=== PATIENT | female | born 1990 | race American Indian/Alaskan Native ===

== ENCOUNTER 2017-01-10 13:57 | Inpatient (IN) | payer MEDICAID ==
[2017-01-10 14:09] VITALS: BMI 40.7
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
[2017-01-10 15:33] LABS: ALB/GLOB RATIO 1.2 (1.1-1.8); ALKALINE PHOSPHATASE 73 U/L (38-133); ALT/SGPT 18 U/L (7-56); AST/SGOT 29 U/L (15-39); BILIRUBIN,TOTAL 1.3 mg/dL (0.2-1.3); BLOOD UREA NITROGEN 9 mg/dL (7-21); CARBON DIOXIDE 24 mmol/L (21-33); CHLORIDE 98 mmol/L (98-107); GFR AFRICAN-AMERICAN > 60; GLUCOSE,RANDOM 112 mg/dL (70-110); LIPASE 17 U/L (23-300); SODIUM 135 mmol/L (132-148)
[2017-01-10 15:46] LABS: HEMATOCRIT 35.1 % (36.0-48.0); MEAN CELL VOLUME 81.4 fL (80.0-105.0); MEAN CORPUSCULAR HEMOGLOBIN 26.9 pg (25.0-35.0); MEAN PLATELET VOLUME 10.3 fl (7.0-11.0); PLATELET COUNT 358 10^3/uL (120.0-450.0); RED CELL DISTRIBUTION WIDTH 15.5 % (11.5-14.5)
[2017-01-10 15:58] LABS: ADD MANUAL DIFF? YES; WHITE BLOOD COUNT 29.6 10^3/ul (4.5-11.0)
[2017-01-10 16:13] LABS: PH,URINE 6.5 (4.7-8.0); URINE BILIRUBIN SMALL (NEGATIVE); URINE BLOOD NEGATIVE (NEGATIVE); URINE GLUCOSE (UA) NEGATIVE (NEGATIVE); URINE KETONE NEGATIVE (NEGATIVE); URINE LEUKOCYTE ESTERASE MODERATE Leu/uL (NEGATIVE); URINE PROTEIN 30 mg/dL (<30 mg/dL); URINE UROBILINOGEN >=8.0 E.U./dL (<1 E.U./dL)
[2017-01-10 16:15] LABS: URINE APPEARANCE SLIGHT-CLOUDY (CLEAR); URINE COLOR AMBER (YELLOW)
[2017-01-10] MEDS ORDERED: Morphine 4 mg/ml ISec IVP STA ×2 (16:16→20:02)
[2017-01-10 16:17] LABS: URINE AMORPHOUS SEDIMENT MODERATE; URINE EPITHELIAL CELLS MANY /hpf (0-5)
[2017-01-10 16:27] LABS: BAND 3 % (0-2); EOSINOPHIL 1 % (0.0-3.0); NEUTROPHIL 86 % (50.0-70.0)
[2017-01-10 16:28] LABS: HYPOCHROMIA 1+; PLATELET ESTIMATE NORMAL (NORMAL); TOXIC GRANULATION 2+
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
[2017-01-10 17:38] LABS: ADD MANUAL DIFF? NO
[2017-01-10 17:40] LABS: BASO # 0.02 K/mm3 (0.0-2.0); BASO % 0.1 % (0.0-3.0); EOS # 0.1 (0.0-0.7); EOS % 0.2 % (1.5-5.0); GRAN # 23.55 (1.4-6.5); GRAN % 86.4 % (50.0-68.0); LYMPH # 2.6 (1.2-3.4); LYMPH % 9.4 % (22.0-35.0); MEAN CELL VOLUME 81.6 fL (80.0-105.0); MEAN CORPUSCULAR HEMOGLOBIN 26.6 pg (25.0-35.0); MEAN CORPUSCULAR HGB CONC 32.6 g/dl (31.0-37.0); MEAN PLATELET VOLUME 9.6 fl (7.0-11.0); MONO # 1.1 (0.1-0.6); MONO % 3.9 % (1.0-6.0); PLATELET COUNT 287 10^3/uL (120.0-450.0); RED CELL DISTRIBUTION WIDTH 15.5 % (11.5-14.5)
[2017-01-10 17:42] LABS: WHITE BLOOD COUNT 27.2 10^3/ul (4.5-11.0)
[2017-01-10] MEDS ORDERED: Piperacill/Tazo 4.5gm in NS 100 ML IVPB STA (17:47)
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
[2017-01-10] MEDS ORDERED: Ampicillin/Sulbactam 3 GM in Sodium Chloride 0.9% 100 ML IVPB STA (18:09)
[2017-01-10 18:34] LABS: VENOUS BLOOD PH 7.38 (7.32-7.43)
[2017-01-10] MEDS ORDERED: Sodium Chloride 0.9% 1,000 ML IV STA (18:41)
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
--- NOTE | 2017-01-10 22:38 | US ---
EXAM: US Pelvis Complete, Transabdominal. US Pelvis, Transvaginal. CLINICAL HISTORY: 26 years old, female; Pain; Abdominal pain; Lower abdomen; Additional info: Pid R/O ovarian abscess TECHNIQUE: Real-time transabdominal and transvaginal pelvic ultrasound (complete) with image documentation. Transvaginal imaging was used for better evaluation of the endometrium and adnexa. EXAM DATE/TIME: 01/10/2017 6:20 PM COMPARISON: Recent pelvic CT of 01/10/2017 FINDINGS: Uterus: Measures 12.4 x 6.4 x 6.6 cm. A solid, oval shaped mass measuring 2.5 x 2.2 x 2.5 cm is seen arising from the uterus anteriorly on the left, most compatible with a fibroid. This is most likely subserosal in location. It is exophytic. Endometrial stripe does not appear abnormally thickened, measuring 1.4 cm. Cervix appears closed. Right ovary: Within normal limits in appearance. Measures 3.1 x 1.9 x 2.3 cm. Flow seen in the right ovary on color and Doppler imaging. Left ovary: Within normal limits in appearance. Measures 3.3 x 2.8 x 2.6 cm. Flow seen in the left ovary on color and Doppler imaging. Cul-de-sac: No free fluid. IMPRESSION: No evidence of ovarian torsion, tubo-ovarian abscess, or other significant acute abnormality. 2.5 cm uterine fibroid. See above for remaining findings.
[2017-01-10] MEDS: Oxycodone/Acetaminophen 5/325 mg Tab PO PRN (23:50)
[2017-01-10] MEDS: Sodium Chloride 0.9% 1,000 ML IV SCH (23:51)
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
[2017-01-11] MEDS: cefOXitin 2 GM in Sodium Chloride 0.9% 100 ML IV SCH ×4 (00:18→19:13)
[2017-01-11] MEDS ORDERED: HYDROmorphone 1 mg/ml ISec IVP STA (02:20)
[2017-01-11] MEDS: Oxycodone/Acetaminophen 5/325 mg Tab PO PRN ×3 (05:41→19:18)
[2017-01-11 07:38] LABS: HEMATOCRIT 31.8 % (36.0-48.0); MEAN CELL VOLUME 82.6 fL (80.0-105.0); MEAN CORPUSCULAR HEMOGLOBIN 26.2 pg (25.0-35.0); MEAN CORPUSCULAR HGB CONC 31.8 g/dl (31.0-37.0); MEAN PLATELET VOLUME 9.4 fl (7.0-11.0); PLATELET COUNT 296 10^3/uL (120.0-450.0); RED CELL DISTRIBUTION WIDTH 15.6 % (11.5-14.5); WHITE BLOOD COUNT 21.7 10^3/ul (4.5-11.0)
[2017-01-11 07:42] LABS: ADD MANUAL DIFF? YES
[2017-01-11 07:57] LABS: ALB/GLOB RATIO 1.1 (1.1-1.8); ALKALINE PHOSPHATASE 78 U/L (38-133); ALT/SGPT 16 U/L (7-56); AST/SGOT 24 U/L (15-39); BILIRUBIN,TOTAL 0.7 mg/dL (0.2-1.3); BLOOD UREA NITROGEN 8 mg/dL (7-21); CALCIUM 8.2 mg/dL (8.4-10.5); CARBON DIOXIDE 24 mmol/L (21-33); CHLORIDE 100 mmol/L (95-110); GFR AFRICAN-AMERICAN > 60; GLUCOSE,RANDOM 118 mg/dL (70-110); POTASSIUM 3.7 mmol/L (3.6-5.0); SODIUM 132 mmol/L (132-148); TOTAL PROTEIN 7.1 g/dL (5.8-8.3)
[2017-01-11 08:51] LABS: NEUTROPHIL 80 % (50.0-70.0)
[2017-01-11 08:52] LABS: ANISOCYTOSIS 1+; ATYPICAL LYMPHOCYTE 1 % (0.0-0.0); HYPOCHROMIA 1+; MICROCYTOSIS 1+; PLATELET ESTIMATE NORMAL (NORMAL)
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
[2017-01-11 09:28] LABS: IRON 10 ug/dL (45-180)
--- NOTE | 2017-01-11 11:31 | CP.PCM.PN ---
Subjective - Date & Time of Evaluation Date of Evaluation: 01/11/17 Time of Evaluation: 07:40 Objective - Vital Signs/Intake and Output Vital Signs (last 24 hours): Temp Pulse Resp BP Pulse Ox 100 F H 109 H 18 142/82 97 01/11/17 09:21 01/11/17 07:30 01/11/17 07:30 01/11/17 07:30 01/11/17 07:30 Intake and Output: 01/11/17 01/11/17 06:59 18:59 Intake Total 1680 Balance 1680 - Medications Medications: Current Medications Acetaminophen (Tylenol 325mg Tab) 650 mg PO Q4H PRN PRN Reason: Fever >100.5 F Last Admin: 01/11/17 09:21 Dose: 650 mg Doxycycline Hyclate (Doryx) 100 mg PO Q12 [facility] PRN Reason: Protocol Last Admin: 01/11/17 09:21 Dose: 100 mg Cefoxitin Sodium 2 gm/ Sodium (Chloride) 100 mls @ 100 mls/hr IV Q6H [facility] PRN Reason: Protocol Last Admin: 01/11/17 05:40 Dose: 100 mls/hr Sodium Chloride (Sodium Chloride 0.9%) 1,000 mls @ 150 mls/hr IV .Q6H40M [facility] Last Admin: 01/10/17 23:51 Dose: 150 mls/hr Ondansetron HCl (Zofran Inj) 4 mg IVP Q4H PRN PRN Reason: Nausea/Vomiting Oxycodone/Acetaminophen (Percocet 5/325 Mg Tab) 1 tab PO Q6H PRN PRN Reason: Pain, moderate (4-7) Stop: 01/13/17 23:39 Last Admin: 01/11/17 05:41 Dose: 1 tab - Labs Labs: 01/11/17 07:15 01/11/17 07:15
[2017-01-11 12:58] LABS: FOLATE 9.4 ng/mL
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
[2017-01-11 23:57] LABS: URINE BILIRUBIN NEGATIVE (NEGATIVE); URINE BLOOD LARGE (NEGATIVE); URINE GLUCOSE (UA) NEGATIVE (NEGATIVE); URINE KETONE NEGATIVE (NEGATIVE); URINE LEUKOCYTE ESTERASE TRACE Leu/uL (NEGATIVE); URINE PROTEIN 30 mg/dL (<30 mg/dL)
[2017-01-12] MEDS: cefOXitin 2 GM in Sodium Chloride 0.9% 100 ML IV SCH ×5 (00:02→23:12)
[2017-01-12 00:16] LABS: URINE APPEARANCE SL CLOUDY (CLEAR); URINE COLOR YELLOW (YELLOW)
[2017-01-12 00:21] LABS: URINE BACTERIA FEW (NEG)
[2017-01-12] MEDS: Oxycodone/Acetaminophen 5/325 mg Tab PO PRN ×3 (01:04→21:54)
[2017-01-12 06:57] LABS: HEMOGLOBIN 10.2 g/dL (11.7-15.5); RDW 16.7 % (11.0-15.0)
[2017-01-12 07:44] LABS: ADD MANUAL DIFF? NO
[2017-01-12 07:48] LABS: BASO # 0.01 K/mm3 (0.0-2.0); BASO % 0.1 % (0.0-3.0); EOS # 0.3 (0.0-0.7); EOS % 2.5 % (1.5-5.0); GRAN # 11.45 (1.4-6.5); GRAN % 82.9 % (50.0-68.0); HEMATOCRIT 32.5 % (36.0-48.0); LYMPH # 1.5 (1.2-3.4); LYMPH % 11.2 % (22.0-35.0); MEAN CELL VOLUME 82.3 fL (80.0-105.0); MEAN CORPUSCULAR HEMOGLOBIN 26.1 pg (25.0-35.0); MEAN CORPUSCULAR HGB CONC 31.7 g/dl (31.0-37.0); MEAN PLATELET VOLUME 9.5 fl (7.0-11.0); MONO # 0.5 (0.1-0.6); MONO % 3.3 % (1.0-6.0); PLATELET COUNT 299 10^3/uL (120.0-450.0); RED CELL DISTRIBUTION WIDTH 15.3 % (11.5-14.5); WHITE BLOOD COUNT 13.8 10^3/ul (4.5-11.0)
[2017-01-12 08:03] LABS: BLOOD UREA NITROGEN 8 mg/dL (7-21); CALCIUM 8.2 mg/dL (8.4-10.5); CARBON DIOXIDE 21 mmol/L (21-33); CHLORIDE 106 mmol/L (95-110); GFR AFRICAN-AMERICAN > 60; GLUCOSE,RANDOM 117 mg/dL (70-110); POTASSIUM 3.9 mmol/L (3.6-5.0); SODIUM 136 mmol/L (132-148)
[2017-01-12 09:16] VITALS: RESP 20
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
[2017-01-12] MEDS: Sodium Chloride 0.9% 1,000 ML IV SCH ×3 (14:00→22:25)
--- NOTE | 2017-01-12 16:01 | CP.PCM.PN ---
<Raquel Villeda - Last Filed: 01/12/17 22:00> Subjective - Date & Time of Evaluation Date of Evaluation: 01/12/17 Time of Evaluation: 09:10 - Subjective Subjective: Patient was seen and examined at bedside. Overnight patient complained of generalized itchiness, one dose of Benadryl was given. At the time of exam, patient still complains of bilateral lower abdominal pain. Denies headache, weakness, fever, chills, shortness of breath, chest pain, abdominal pain, nausea , vomiting, vaginal discharge or urinary symptoms. Objective - Vital Signs/Intake and Output Vital Signs (last 24 hours): Temp Pulse Resp BP Pulse Ox 99.9 F H 117 H 20 135/71 100 01/12/17 07:30 01/12/17 07:30 01/12/17 07:30 01/12/17 07:30 01/12/17 07:30 Intake and Output: 01/12/17 01/12/17 06:59 18:59 Intake Total 4680 Balance 4680 - Medications Medications: Current Medications Acetaminophen (Tylenol 325mg Tab) 650 mg PO Q4H PRN PRN Reason: Fever >100.5 F Last Admin: 01/11/17 09:21 Dose: 650 mg Doxycycline Hyclate (Doryx) 100 mg PO Q12 [facility] PRN Reason: Protocol Last Admin: 01/12/17 09:07 Dose: 100 mg Cefoxitin Sodium 2 gm/ Sodium (Chloride) 100 mls @ 100 mls/hr IV Q6H [facility] PRN Reason: Protocol Last Admin: 01/12/17 11:50 Dose: 100 mls/hr Sodium Chloride (Sodium Chloride 0.9%) 1,000 mls @ 150 mls/hr IV .Q6H40M [facility] Last Admin: 01/10/17 23:51 Dose: 150 mls/hr Ibuprofen (Motrin Tab) 400 mg PO Q6H PRN PRN Reason: Fever >100.4 F Last Admin: 01/12/17 04:51 Dose: 400 mg Nicotine (Nicoderm Cq) 1 patch TD DAILY [facility] Last Admin: 01/12/17 09:10 Dose: 1 patch Ondansetron HCl (Zofran Inj) 4 mg IVP Q4H PRN PRN Reason: Nausea/Vomiting Oxycodone/Acetaminophen (Percocet 5/325 Mg Tab) 1 tab PO Q6H PRN PRN Reason: Pain, moderate (4-7) Stop: 01/13/17 23:39 Last Admin: 01/12/17 09:07 Dose: 1 tab - Labs Labs: 01/12/17 06:45 01/12/17 06:45 - Constitutional Appears: Non-toxic, No Acute Distress - Head Exam Head Exam: ATRAUMATIC, NORMOCEPHALIC - Eye Exam Eye Exam: Normal appearance, PERRL - ENT Exam ENT Exam: Mucous Membranes Moist - Neck Exam Neck Exam: Normal Inspection - Respiratory Exam Respiratory Exam: Clear to Ausculation Bilateral, NORMAL BREATHING PATTERN. absent: Wheezes, Respiratory Distress - Cardiovascular Exam Cardiovascular Exam: RRR, +S1, +S2 - GI/Abdominal Exam GI & Abdominal Exam: Soft, Normal Bowel Sounds. absent: Tenderness Additional comments: No ecchymosis or obvious trauma appreciated - Extremities Exam Extremities Exam: Normal Inspection. absent: Joint Swelling, Pedal Edema - Back Exam Back Exam: NORMAL INSPECTION - Neurological Exam Neurological Exam: Alert, Awake, Oriented x3 - Psychiatric Exam Psychiatric exam: Normal Affect, Normal Mood - Skin Skin Exam: Dry, Intact, Warm Assessment and Plan - Assessment and Plan (Free Text) Assessment: 26 year old female with no significant past medical history was admitted for abdominal pain and pelvic inflammatory disease Abdominal pain Admitted to regular floor Etiology is likely pelvic inflammatory disease due to unknown and now disseminated infection and/or secondary to trauma Full pelvic examination in the ER revealed cervical motion tenderness C. trachomatis RNA negative N. gonorrhoeae RNA positive Urine and blood cultures no growth after 48 hours UA reviewed Lipase negative CT abd 01/10 showed mild dilatation of fluid-filled bowel loops and mild mucosal enhancement and mild prominence of the mesenteric lymph nodes Transvaginal US 01/10 showed a 2.5cm uterine fibroid but no tubo-ovarian abscess or ovarian torsion Rib X rays 01/10 showed no rib fractures Continue doxycycline and cefoxitin Continue IVF NS @ 150ml/hr Continue percocet 5/325 PRN pain Vitals q4h [employer] and gen surg consulted No intervention indicated Continue current abx, continue with doxycycline/flagyl BID as outpatient Follow up HIV, Hep B, RPR Anemia Iron studies: iron 10, TIBC 328, %sat 3, Ferritin 81.4 Normal B12, folate Hgb electrophoresis pending No active bleeding Hemodynamically stable Prophylactic measures AE hose for DVT ppx Continue tylenol PRN fever Continue zofran PRN nausea Activity as tolerated <Duy Contreras - Last Filed: 01/13/17 06:52> Objective - Vital Signs/Intake and Output Vital Signs (last 24 hours): Temp Pulse Resp BP Pulse Ox 98.6 F 100 H 20 146/78 96 01/13/17 05:58 01/13/17 05:58 01/13/17 05:58 01/13/17 05:58 01/13/17 05:58 Intake and Output: 01/12/17 01/13/17 18:59 06:59 Intake Total 2420 Balance 2420 - Medications Medications: Current Medications Acetaminophen (Tylenol 325mg Tab) 650 mg PO Q4H PRN PRN Reason: Fever >100.5 F Last Admin: 01/13/17 03:34 Dose: 650 mg Diphenhydramine HCl (Benadryl) 25 mg PO HS PRN PRN Reason: Insomnia Last Admin: 01/12/17 23:33 Dose: 25 mg Doxycycline Hyclate (Doryx) 100 mg PO Q12 [facility] PRN Reason: Protocol Last Admin: 01/12/17 21:53 Dose: 100 mg Cefoxitin Sodium 2 gm/ Sodium (Chloride) 100 mls @ 100 mls/hr IV Q6H [facility] PRN Reason: Protocol Last Admin: 01/13/17 05:04 Dose: 100 mls/hr Sodium Chloride (Sodium Chloride 0.9%) 1,000 mls @ 150 mls/hr IV .Q6H40M [facility] Last Admin: 01/13/17 02:00 Dose: 150 mls/hr Ibuprofen (Motrin Tab) 400 mg PO Q6H PRN PRN Reason: Fever >100.4 F Last Admin: 01/12/17 04:51 Dose: 400 mg Nicotine (Nicoderm Cq) 1 patch TD DAILY [facility] Last Admin: 01/12/17 09:10 Dose: 1 patch Ondansetron HCl (Zofran Inj) 4 mg IVP Q4H PRN PRN Reason: Nausea/Vomiting Oxycodone/Acetaminophen (Percocet 5/325 Mg Tab) 1 tab PO Q6H PRN PRN Reason: Pain, moderate (4-7) Stop: 01/13/17 23:39 Last Admin: 01/12/17 21:54 Dose: 1 tab - Labs Labs: 01/12/17 06:45 01/12/17 06:45 Attending/Attestation - Attestation I have personally seen and examined this patient.: Yes I have fully participated in the care of the patient.: Yes I have reviewed all pertinent clinical information, including history, physical exam and plan: Yes Notes (Text): 01/12/17 26 year old female with no significant past medical history who presented with lower abdominal pain, found to have PID. C. trachomatis RNA was negative and N. gonorrhoeae RNA was positive. [employer] evaluation was appreciated. Continue with iv antibiotics. She was febrile yesterday but no fever reported today. Will follow up on cultures. Leukocytosis is improving. She has mild anemia with fibroids as well. 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 Duy Contreras MD Hospitalist.
[2017-01-13] MEDS: Sodium Chloride 0.9% 1,000 ML IV SCH ×3 (02:00→09:55)
[2017-01-13] MEDS: cefOXitin 2 GM in Sodium Chloride 0.9% 100 ML IV SCH (05:04)
[2017-01-13 05:59] VITALS: BP 146/78; PULSE 100; TEMP 98.6; O2SAT 96
[2017-01-13 06:40] LABS: HEMOGLOBIN F <1.0 Percent (<2.0)
[2017-01-13 07:10] LABS: ADD MANUAL DIFF? NO
[2017-01-13 07:18] LABS: BASO # 0.01 K/mm3 (0.0-2.0); BASO % 0.1 % (0.0-3.0); EOS # 0.5 (0.0-0.7); EOS % 6.3 % (1.5-5.0); GRAN # 5.24 (1.4-6.5); GRAN % 66.4 % (50.0-68.0); HEMATOCRIT 29.5 % (36.0-48.0); LYMPH # 1.5 (1.2-3.4); LYMPH % 18.8 % (22.0-35.0); MEAN CELL VOLUME 80.6 fL (80.0-105.0); MEAN CORPUSCULAR HEMOGLOBIN 26.5 pg (25.0-35.0); MEAN CORPUSCULAR HGB CONC 32.9 g/dl (31.0-37.0); MEAN PLATELET VOLUME 9.6 fl (7.0-11.0); MONO # 0.7 (0.1-0.6); MONO % 8.4 % (1.0-6.0); PLATELET COUNT 314 10^3/uL (120.0-450.0); RED CELL DISTRIBUTION WIDTH 15.4 % (11.5-14.5); WHITE BLOOD COUNT 7.9 10^3/ul (4.5-11.0)
[2017-01-13 07:52] LABS: BLOOD UREA NITROGEN 7 mg/dL (7-21); CALCIUM 8.4 mg/dL (8.4-10.5); CARBON DIOXIDE 20 mmol/L (21-33); CHLORIDE 107 mmol/L (98-107); GFR AFRICAN-AMERICAN > 60; GLUCOSE,RANDOM 103 mg/dL (70-110); POTASSIUM 3.9 mmol/L (3.6-5.0); SODIUM 136 mmol/L (132-148)
[2017-01-13] MEDS ORDERED: Hydrocortisone 1% Cream (30 GM) TOP PRN (08:07)
--- NOTE | 2017-01-13 10:27 | CP.PCM.PN ---
Subjective - Date & Time of Evaluation Date of Evaluation: 01/13/17 Time of Evaluation: 10:20 - Subjective Subjective: Resident Code Star Progress Note Code star was called overhead at 10:18am. Patient had an unwitnessed fall in the restroom after she urinated. Patient states she fell and shortly after standing up from the toilet. She lost balance and fell backwards hurting her back. Patient became agitated and refused further questions and physical examination. Patient was standing by her bed stating that she wants to leave the hospital. Objective - Vital Signs/Intake and Output Vital Signs (last 24 hours): Temp Pulse Resp BP Pulse Ox 98.6 F 100 H 20 146/78 96 01/13/17 07:30 01/13/17 07:30 01/13/17 07:30 01/13/17 07:30 01/13/17 07:30 Intake and Output: 01/13/17 01/13/17 06:59 18:59 Intake Total 2420 Balance 2420 - Medications Medications: Current Medications Acetaminophen (Tylenol 325mg Tab) 650 mg PO Q4H PRN PRN Reason: Fever >100.5 F Last Admin: 01/13/17 03:34 Dose: 650 mg Diphenhydramine HCl (Benadryl) 25 mg PO HS PRN PRN Reason: Insomnia Last Admin: 01/12/17 23:33 Dose: 25 mg Doxycycline Hyclate (Doryx) 100 mg PO Q12 [facility] PRN Reason: Protocol Last Admin: 01/13/17 09:53 Dose: 100 mg Hydrocortisone (Cortizone 1% Cream) 0 gm TOP Q12 PRN PRN Reason: Itching / Pruritus Cefoxitin Sodium 2 gm/ Sodium (Chloride) 100 mls @ 100 mls/hr IV Q6H [facility] PRN Reason: Protocol Last Admin: 01/13/17 05:04 Dose: 100 mls/hr Sodium Chloride (Sodium Chloride 0.9%) 1,000 mls @ 150 mls/hr IV .Q6H40M [facility] Last Admin: 01/13/17 09:55 Dose: 150 mls/hr Ibuprofen (Motrin Tab) 400 mg PO Q6H PRN PRN Reason: Fever >100.4 F Last Admin: 01/12/17 04:51 Dose: 400 mg Nicotine (Nicoderm Cq) 1 patch TD DAILY [facility] Last Admin: 01/13/17 09:53 Dose: 1 patch Ondansetron HCl (Zofran Inj) 4 mg IVP Q4H PRN PRN Reason: Nausea/Vomiting Oxycodone/Acetaminophen (Percocet 5/325 Mg Tab) 1 tab PO Q6H PRN PRN Reason: Pain, moderate (4-7) Stop: 01/13/17 23:39 Last Admin: 01/12/17 21:54 Dose: 1 tab - Labs Labs: 01/13/17 06:30 01/13/17 06:30 - Constitutional Appears: Well, No Acute Distress - Respiratory Exam Respiratory Exam: absent: Respiratory Distress - Neurological Exam Neurological Exam: Alert, Awake, Oriented x3 - Psychiatric Exam Psychiatric exam: Agitated, Manic - Skin Skin Exam: Normal Color Assessment and Plan - Assessment and Plan (Free Text) Assessment: Lower back pain S/p mechanical fall -Patient refused to be examined or further questioning -Patient refused to received further medical treatments
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
== END 2017-01-13 11:37 | disposition left against medical advice (07) ==
LOC: ED 13:57 → ERH 18:27 → 5RSO 22:29
PROVIDERS: ADMIT Internal Medicine; ATTEND Internal Medicine
DX: N73.9 Female pelvic inflammatory disease, unspecified (principal); D64.9 Anemia, unspecified; D25.9 Leiomyoma of uterus, unspecified; W18.11XA Fall from or off toilet without subsequent striking against object, initial encounter; F17.210 Nicotine dependence, cigarettes, uncomplicated; K52.9 Noninfective gastroenteritis and colitis, unspecified; Z82.49 Family history of ischemic heart disease and other diseases of the circulatory system; Z83.3 Family history of diabetes mellitus; R00.0 Tachycardia, unspecified; R40.2412 Glasgow coma scale score 13-15, at arrival to emergency department; Y08.89XA Assault by other specified means, initial encounter; Y92.238 Other place in hospital as the place of occurrence of the external cause